=== PATIENT | female | born 1940 | race Caucasian/White ===

== ENCOUNTER → 2017-02-28 | Outpatient (CLI) | payer OTHER | LOC: CIMAGING 13:49 | DX: Z12.31 Encounter for screening mammogram for malignant neoplasm of breast (principal) | CPT/HCPCS: G0202 ==

== ENCOUNTER → 2018-04-02 | Outpatient (CLI) | payer OTHER | LOC: FIMAGING 13:21 | PROVIDERS: ATTEND Family Medicine Sports Medicine | DX: Z12.31 Encounter for screening mammogram for malignant neoplasm of breast (principal) ==

== ENCOUNTER → 2019-04-10 | Outpatient (CLI) | payer OTHER | LOC: FIMAGING 13:37 ==